=== PATIENT | female | born 1970 | race Two or more races ===

== ENCOUNTER 2020-07-14 06:38 | Day surgery (SDC) | payer OTHER | END 2020-07-14 18:45 | disposition home or self-care (01) | LOC: CIR.AMB 06:38 → CIR LITO 10:15 → CIR.AMB 15:00 | PROVIDERS: ATTEND Orthopaedic Surgery Hand Surgery | DX: M77.11 Lateral epicondylitis, right elbow (principal); G56.31 Lesion of radial nerve, right upper limb; Z20.822 Contact with and (suspected) exposure to COVID-19 ==